=== PATIENT | male | born 1980 | race Caucasian/White ===

== ENCOUNTER 2016-12-13 02:02 | Emergency (ER) | payer OTHER ==
[2016-12-13] MEDS ORDERED: ONDANSETRON 4 MG/2 ML VIAL IVP STA (02:21)
[2016-12-13] MEDS ORDERED: SODIUM CHLORIDE 0.9% 2,000 ML IV STA (02:21)
[2016-12-13 02:57] LABS: Basophils % (A) 1 %; CH 34.5; CHCM 35.1; Eosinophils # (A) 0.1 k/uL (0-0.7); Eosinophils % (A) 1 %; HCT 49.2 % (39.0-53.0); HDW 2.39; HGB 16.7 gm/dL (13.0-17.5); Luc # (Auto) 0.13; Luc % (Auto) 2; Lymphocytes # (A) 1.4 k/uL (1.0-4.8); Lymphocytes % (A) 22 %; MCH 33.5 pg (25.0-35.0); MCHC 33.9 g/dL (31.0-37.0); MCV 98.8 fL (80.0-100.0); Monocytes # (A) 0.3 k/uL (0-1.0); Monocytes % (A) 5 %; Neutrophils # (A) 4.3 k/uL (1.3-7.7); Neutrophils % (A) 69 %; RBC 4.98 m/uL (4.30-5.90); RDW 12.2 % (11.5-15.5); WBC 6.3 k/uL (3.8-10.6); WBC (Perox) 6.24
[2016-12-13 03:08] LABS: ALT 75 U/L (21-72); AST 80 U/L (17-59); Alkaline Phosphatase 88 U/L (38-126); Amylase 110 U/L (30-110); Anion Gap 19 mmol/L; Blood Urea Nitrogen 5 mg/dL (9-20); Calcium 9.5 mg/dL (8.4-10.2); Carbon Dioxide 22 mmol/L (22-30); Chloride 104 mmol/L (98-107); Glucose 107 mg/dL (74-99); Non-African American GFR(MDRD) >60 (>60 ml/min/1.73 sqM); Potassium 4.3 mmol/L (3.5-5.1); Sodium 145 mmol/L (137-145); Total Bilirubin 1.6 mg/dL (0.2-1.3); Total Protein 7.6 g/dL (6.3-8.2)
--- NOTE | 2016-12-13 03:12 | ED ---
General Adult HPI - General Chief complaint: Nausea/Vomiting/Diarrhea Stated complaint: Abdominal Pain Time Seen by Provider: 12/13/16 02:04 Source: patient, RN notes reviewed, old records reviewed Mode of arrival: EMS Limitations: no limitations - History of Present Illness Initial comments: 36-year-old male presents the ED chief complaint of possible food poisoning. Patient reports that he ate BBQ chicken grilled out with friends. Patient reports shortly afterwards he became extremely nauseated. He denies any abdominal pain. Patient reports that he feels like he does have to have diarrhea. Patient states he was feeling fine after 2 hours later. Patient denies any other history of sick contacts with other people having the meal. Patient reports he did drink approximately 4 beers earlier today. Patient denies any chest pain, shortness of breath, abdominal pain. - Related Data Previous Rx's Medication Instructions Recorded Ondansetron Odt [Zofran Odt] 4 mg PO Q8HR PRN #12 tab 12/13/16 Allergies Allergy/AdvReac Type Severity Reaction Status Date / Time No Known Allergies Allergy Verified 12/13/16 02:14 Review of Systems ROS Statement: Those systems with pertinent positive or pertinent negative responses have been documented in the HPI. ROS Other: All systems not noted in ROS Statement are negative. Past Medical History Past Medical History: No Reported History History of Any Multi-Drug Resistant Organisms: MRSA Date of last positivie culture/infection: 2004 MDRO Source:: mrsa left wrist Additional Past Surgical History / Comment(s): ruptured spleen, several yrs ago , tubes in ears as a child Past Psychological History: No Psychological Hx Reported Smoking Status: Current every day smoker Past Alcohol Use History: Occasional Past Drug Use History: Marijuana General Exam - General Exam Comments Initial Comments: Well-appearing 36-year-old male. No acute distress. Limitations: no limitations General appearance: alert, in no apparent distress Head exam: Present: atraumatic Eye exam: Present: normal appearance, PERRL, EOMI. Absent: scleral icterus, conjunctival injection, periorbital swelling ENT exam: Present: normal exam, mucous membranes moist Neck exam: Present: normal inspection. Absent: tenderness, meningismus, lymphadenopathy Respiratory exam: Present: normal lung sounds bilaterally. Absent: respiratory distress, wheezes, rales, rhonchi, stridor Cardiovascular Exam: Present: regular rate, normal rhythm, normal heart sounds. Absent: systolic murmur, diastolic murmur, rubs, gallop, clicks GI/Abdominal exam: Present: soft, normal bowel sounds. Absent: distended, tenderness, guarding, rebound, rigid Extremities exam: Present: normal inspection, full ROM, normal capillary refill. Absent: tenderness, pedal edema, joint swelling, calf tenderness Back exam: Present: normal inspection Neurological exam: Present: alert, oriented X3, CN II-XII intact Psychiatric exam: Present: normal affect, normal mood Skin exam: Present: warm, dry, intact, normal color. Absent: rash Course Vital Signs 12/13/16 02:05 Temperature 98.6 F Pulse Rate 105 H Respiratory 16 Rate Blood Pressure 147/96 O2 Sat by Pulse 97 Oximetry - Reevaluation(s) Reevaluation #1: 12/13/16 03:40 Patient is reevaluated. Patient reports that he is feeling much better after fluids and nausea medication. Medical Decision Making - Medical Decision Making 36-year-old male presents the ED chief complaint of possible food poisoning. Patient reports that he ate BBQ fish grilled out with friends. Patient reports shortly afterwards he became extremely nauseated. He denies any abdominal pain. Patient reports that he feels like he does have to have diarrhea. Patient is given IV fluids. Patient's lab work was reviewed and negative for any acute process. Patient given a second liter of fluids. Discussed that we can discharge patient with nausea medication. He has no abdominal tenderness or any other complaints or complications. Patient agrees to treatment plan will comply. Return parameters were discussed. - Lab Data Result diagrams: 12/13/16 02:37 12/13/16 02:37 Lab Results 12/13/16 12/13/16 Range/Units 02:37 02:37 WBC 6.3 (3.8-10.6) k/uL RBC 4.98 (4.30-5.90) m/uL Hgb 16.7 (13.0-17.5) gm/dL Hct 49.2 (39.0-53.0) % MCV 98.8 (80.0-100.0) fL MCH 33.5 (25.0-35.0) pg MCHC 33.9 (31.0-37.0) g/dL RDW 12.2 (11.5-15.5) % Plt Count 220 (150-450) k/uL Neutrophils % 69 % Lymphocytes % 22 % Monocytes % 5 % Eosinophils % 1 % Basophils % 1 % Neutrophils # 4.3 (1.3-7.7) k/uL Lymphocytes # 1.4 (1.0-4.8) k/uL Monocytes # 0.3 (0-1.0) k/uL Eosinophils # 0.1 (0-0.7) k/uL Basophils # 0.0 (0-0.2) k/uL Sodium 145 (137-145) mmol/L Potassium 4.3 (3.5-5.1) mmol/L Chloride 104 (98-107) mmol/L Carbon Dioxide 22 (22-30) mmol/L Anion Gap 19 mmol/L BUN 5 L (9-20) mg/dL Creatinine 0.90 (0.66-1.25) mg/dL Est GFR (MDRD) Af Amer >60 (>60 ml/min/1.73 sqM) Est GFR (MDRD) Non-Af >60 (>60 ml/min/1.73 sqM) Glucose 107 H (74-99) mg/dL Calcium 9.5 (8.4-10.2) mg/dL Total Bilirubin 1.6 H (0.2-1.3) mg/dL AST 80 H (17-59) U/L ALT 75 H (21-72) U/L Alkaline Phosphatase 88 (38-126) U/L Total Protein 7.6 (6.3-8.2) g/dL Albumin 5.1 H (3.5-5.0) g/dL Amylase 110 (30-110) U/L Lipase 281 (23-300) U/L Disposition Clinical Impression: Gastroenteritis Disposition: HOME SELF-CARE Condition: Good Instructions: Acute Nausea and Vomiting (ED) Additional Instructions: Patient is to rest, increase fluids. Clear liquid diet for the next 24-48 hours. Take nausea medication as prescribed. Return to the emergency department if any alarming signs occur. Prescriptions: Ondansetron Odt [Zofran Odt] 4 mg PO Q8HR PRN #12 tab PRN Reason: Nausea Referrals: None,Stated [Primary Care Provider] - 1-2 days Aye Brunson MD [STAFF PHYSICIAN] - 1-2 days Time of Disposition: 03:39
[2016-12-13] MEDS ORDERED: ONDANSETRON 4 MG ODT STARTER PACK 2 TAB BTL PO STA (03:39)
[2016-12-13 04:00] VITALS: RESP 14
[2016-12-13 04:32] VITALS: BP 105/70; PULSE 84; TEMP 97
== END 2016-12-13 04:41 | disposition home or self-care (01) ==
LOC: EC 02:02
DX: K52.9 Noninfective gastroenteritis and colitis, unspecified (principal); R11.2 Nausea with vomiting, unspecified; F17.200 Nicotine dependence, unspecified, uncomplicated
CPT/HCPCS: 36415; 80053; 82150; 83690; 85025; 99284; 96374; 96361 ×2; J2405; S0119

== ENCOUNTER 2016-12-15 23:05 | Emergency (ER) | payer OTHER ==
[2016-12-15] MEDS ORDERED: SODIUM CHLORIDE 0.9% 1,000 ML IV STA (23:18)
[2016-12-15] MEDS ORDERED: LORazepam 2 MG/ML SYRINGE IV STA (23:35)
[2016-12-15] MEDS ORDERED: ONDANSETRON 4 MG/2 ML VIAL IVP STA (23:35)
[2016-12-15] MEDS ORDERED: HYDROmorphone 1 MG/ML 1 ML SYRINGE IVP STA (23:35)
--- NOTE | 2016-12-15 23:35 | ED ---
General Adult HPI - General Chief complaint: Nausea/Vomiting/Diarrhea Stated complaint: vomiting/diarrhea/chest pain Time Seen by Provider: 12/15/16 23:16 Source: patient, RN notes reviewed Mode of arrival: ambulatory Limitations: no limitations - History of Present Illness Initial comments: 36-year-old male presents to the emergency department with a chief complaint of abdominal pain that radiates to the back. Patient states she's had it for the past few days. Patient states he had an extended up into his chest associated with nausea vomiting. Patient states that he does drink alcohol on a regular basis. Patient states he's been trying stop the alcohol and he is having withdrawal like symptoms when he stops area patient states that he did have a beer today. Patient's seizures no fever or chills. Patient states his mother has a history of pancreatitis and has had something like that. He should be seen. Patient denies any significant health history or any other complaints. Patient denies any recent fever, chills, shortness of breath, back pain, numbness or tingling, dysuria or hematuria, constipation or diarrhea, headaches or visual changes, or any other current symptoms. - Related Data Previous Rx's Medication Instructions Recorded Ondansetron Odt [Zofran Odt] 4 mg PO Q8HR PRN #12 tab 12/13/16 chlordiazePOXIDE HCl [Librium] 25 mg PO DIRECTED 6 Days 12/16/16 Allergies Allergy/AdvReac Type Severity Reaction Status Date / Time Sulfa (Sulfonamide Allergy Unknown Verified 12/15/16 23:14 Antibiotics) Childhood Review of Systems ROS Statement: Those systems with pertinent positive or pertinent negative responses have been documented in the HPI. ROS Other: All systems not noted in ROS Statement are negative. Past Medical History Past Medical History: No Reported History History of Any Multi-Drug Resistant Organisms: MRSA Date of last positivie culture/infection: 2004 MDRO Source:: mrsa left wrist Additional Past Surgical History / Comment(s): ruptured spleen, several yrs ago , tubes in ears as a child Past Psychological History: No Psychological Hx Reported Smoking Status: Current every day smoker Past Alcohol Use History: Occasional Past Drug Use History: Marijuana General Exam - General Exam Comments Initial Comments: General: The patient is awake and alert, in no distress, and does not appear acutely ill. Eye: Pupils are equal, round and reactive to light, extra-ocular movements are intact; there is normal conjunctiva bilaterally. No signs of icterus. Ears, nose, mouth and throat: There are moist mucous membranes. Neck: The neck is supple, there is no tenderness. Cardiovascular: There is a regular rate and rhythm. No murmur, rub or gallop is appreciated. Respiratory: Lungs are clear to auscultation, respirations are non-labored, breath sounds are equal. No wheezes, stridor, rales, or rhonchi. Gastrointestinal: Soft, non-distended, non-tender abdomen without masses or organomegaly noted. There is no rebound or guarding present. No CVA tenderness. Bowel sounds are unremarkable. Back: There is no tenderness to palpation in the midline. There is no obvious deformity. No rashes noted. Musculoskeletal: Normal ROM, no tenderness, There is no pedal edema. There is no calf tenderness or swelling. Sensation intact. Pulses equal bilaterally 2+. Neurological: CN II-XII intact, There are no obvious motor or sensory deficits. Coordination appears grossly intact. Speech is normal. Skin: Skin is warm and dry and no rashes or lesions are noted. Psychiatric: Cooperative, appropriate mood & affect, normal judgment. Limitations: no limitations Course Vital Signs 12/15/16 12/15/16 12/16/16 23:10 23:37 01:14 Temperature 99.4 F Pulse Rate 139 H 104 H Pulse Rate [ 109 H Apical] Respiratory 24 18 Rate Blood Pressure 158/109 130/81 O2 Sat by Pulse 99 98 Oximetry EKG Findings - EKG Comments: EKG Findings:: normal sinus rhythm 97 bpm, normal axis, no atopy, no S-T depressions or elevations, Medical Decision Making - Medical Decision Making 36-year-old male presents with abdominal pain that radiates to the back associated with nausea vomiting. This time patient is sleeping in the room and states that he is feeling better. At this time patient is noticed to have elevated bilirubin. At this time I did discuss needs to follow-up with GI he is given . she was at risk. We did discuss return parameters. We discussed all patient's questions. He stated the Mitul and given the plan. He will be discharged. - Lab Data Result diagrams: 12/15/16 23:33 12/15/16 23:33 Lab Results 12/15/16 12/15/16 12/15/16 Range/Units 23:33 23:33 23:33 WBC 5.8 (3.8-10.6) k/uL RBC 4.52 (4.30-5.90) m/uL Hgb 15.3 (13.0-17.5) gm/dL Hct 44.4 (39.0-53.0) % MCV 98.2 (80.0-100.0) fL MCH 33.8 (25.0-35.0) pg MCHC 34.4 (31.0-37.0) g/dL RDW 12.3 (11.5-15.5) % Plt Count 170 (150-450) k/uL Neutrophils % 70 % Lymphocytes % 17 % Monocytes % 10 % Eosinophils % 0 % Basophils % 0 % Neutrophils # 4.0 (1.3-7.7) k/uL Lymphocytes # 1.0 (1.0-4.8) k/uL Monocytes # 0.6 (0-1.0) k/uL Eosinophils # 0.0 (0-0.7) k/uL Basophils # 0.0 (0-0.2) k/uL PT (9.0-12.0) sec INR (<1.1) APTT (22.0-30.0) sec Sodium 137 (137-145) mmol/L Potassium 3.4 L (3.5-5.1) mmol/L Chloride 97 L (98-107) mmol/L Carbon Dioxide 23 (22-30) mmol/L Anion Gap 17 mmol/L BUN 3 L (9-20) mg/dL Creatinine 0.80 (0.66-1.25) mg/dL Est GFR (MDRD) Af Amer >60 (>60 ml/min/1.73 sqM) Est GFR (MDRD) Non-Af >60 (>60 ml/min/1.73 sqM) Glucose 96 (74-99) mg/dL Calcium 10.0 (8.4-10.2) mg/dL Magnesium 2.1 (1.6-2.3) mg/dL Total Bilirubin 3.3 H (0.2-1.3) mg/dL Conjugated Bilirubin 0.0 (0.0-0.3) mg/dL Unconjugated Bilirubin 2.5 H (0.0-1.1) mg/dL Delta Bilirubin 0.8 H (0.0-0.2) mg/dL AST 120 H (17-59) U/L ALT 90 H (21-72) U/L Alkaline Phosphatase 89 (38-126) U/L Total Creatine Kinase 268 H (55-170) U/L CK-MB (CK-2) 1.0 (0.0-2.4) ng/mL CK-MB (CK-2) Rel Index 0.4 Troponin I <0.012 (0.000-0.034) ng/mL Total Protein 7.2 (6.3-8.2) g/dL Albumin 4.9 (3.5-5.0) g/dL Amylase 84 (30-110) U/L Lipase 239 (23-300) U/L 12/15/16 Range/Units 23:33 WBC (3.8-10.6) k/uL RBC (4.30-5.90) m/uL Hgb (13.0-17.5) gm/dL Hct (39.0-53.0) % MCV (80.0-100.0) fL MCH (25.0-35.0) pg MCHC (31.0-37.0) g/dL RDW (11.5-15.5) % Plt Count (150-450) k/uL Neutrophils % % Lymphocytes % % Monocytes % % Eosinophils % % Basophils % % Neutrophils # (1.3-7.7) k/uL Lymphocytes # (1.0-4.8) k/uL Monocytes # (0-1.0) k/uL Eosinophils # (0-0.7) k/uL Basophils # (0-0.2) k/uL PT 10.4 (9.0-12.0) sec INR 1.0 (<1.1) APTT 24.2 (22.0-30.0) sec Sodium (137-145) mmol/L Potassium (3.5-5.1) mmol/L Chloride (98-107) mmol/L Carbon Dioxide (22-30) mmol/L Anion Gap mmol/L BUN (9-20) mg/dL Creatinine (0.66-1.25) mg/dL Est GFR (MDRD) Af Amer (>60 ml/min/1.73 sqM) Est GFR (MDRD) Non-Af (>60 ml/min/1.73 sqM) Glucose (74-99) mg/dL Calcium (8.4-10.2) mg/dL Magnesium (1.6-2.3) mg/dL Total Bilirubin (0.2-1.3) mg/dL Conjugated Bilirubin (0.0-0.3) mg/dL Unconjugated Bilirubin (0.0-1.1) mg/dL Delta Bilirubin (0.0-0.2) mg/dL AST (17-59) U/L ALT (21-72) U/L Alkaline Phosphatase (38-126) U/L Total Creatine Kinase (55-170) U/L CK-MB (CK-2) (0.0-2.4) ng/mL CK-MB (CK-2) Rel Index Troponin I (0.000-0.034) ng/mL Total Protein (6.3-8.2) g/dL Albumin (3.5-5.0) g/dL Amylase (30-110) U/L Lipase (23-300) U/L - Radiology Data Radiology results: report reviewed, image reviewed Disposition Clinical Impression: Abdominal pain, Elevated bilirubin, Alcoholism Disposition: HOME SELF-CARE Condition: Stable Instructions: Abdominal Pain (ED), Alcohol Withdrawal (ED) Additional Instructions: Please use medication as discussed. Please follow up with family doctor if symptoms have not improved over the next two days. Please return to the emergency room if your symptoms increase or worsen or for any other concerns. Prescriptions: chlordiazePOXIDE HCl [Librium] 25 mg PO DIRECTED 6 Days Referrals: Christy Jaquez MD [STAFF PHYSICIAN] - 1-2 days Time of Disposition: 02:42
[2016-12-15 23:50] LABS: Basophils % (A) 0 %; CHCM 35.8; Eosinophils % (A) 0 %; HCT 44.4 % (39.0-53.0); HDW 2.36; HGB 15.3 gm/dL (13.0-17.5); Luc # (Auto) 0.14; Luc % (Auto) 2; Lymphocytes % (A) 17 %; MCH 33.8 pg (25.0-35.0); MCHC 34.4 g/dL (31.0-37.0); MCV 98.2 fL (80.0-100.0); Mean Platelet Volume 7.4; Monocytes # (A) 0.6 k/uL (0-1.0); Monocytes % (A) 10 %; Neutrophils % (A) 70 %; RBC 4.52 m/uL (4.30-5.90); RDW 12.3 % (11.5-15.5); WBC 5.8 k/uL (3.8-10.6)
[2016-12-15 23:58] LABS: ALT 90 U/L (21-72); AST 120 U/L (17-59); Alkaline Phosphatase 89 U/L (38-126); Amylase 84 U/L (30-110); Anion Gap 17 mmol/L; Blood Urea Nitrogen 3 mg/dL (9-20); Carbon Dioxide 23 mmol/L (22-30); Chloride 97 mmol/L (98-107); Glucose 96 mg/dL (74-99); Magnesium 2.1 mg/dL (1.6-2.3); Non-African American GFR(MDRD) >60 (>60 ml/min/1.73 sqM); Potassium 3.4 mmol/L (3.5-5.1); Sodium 137 mmol/L (137-145); Total Bilirubin 3.3 mg/dL (0.2-1.3); Total Protein 7.2 g/dL (6.3-8.2)
[2016-12-16 00:02] LABS: Partial Thromboplastin Time 24.2 sec (22.0-30.0); Prothrombin Time 10.4 sec (9.0-12.0)
[2016-12-16 00:14] LABS: Creatine Kinase 268 U/L (55-170)
[2016-12-16 00:27] LABS: Troponin I <0.012 ng/mL (0.000-0.034)
--- NOTE | 2016-12-16 01:29 | US ---
EXAM: US Abdomen Limited, Right Upper Quadrant CLINICAL HISTORY: Reason: Pain TECHNIQUE: Real-time ultrasound of the right upper quadrant with image documentation. COMPARISON: No relevant prior studies available. FINDINGS: Liver: Echogenic liver parenchyma most likely reflects steatosis. No mass. No intrahepatic bile duct dilation. Gallbladder: No gallstones. No wall thickening or pericholecystic fluid. Order Administrator reports a Roman sign, but this is of doubtful significance without other findings. Common bile duct: Unremarkable as visualized. No stones. No dilation. Pancreas: Unremarkable as visualized. Right kidney: Unremarkable. No stones. No solid mass. No hydronephrosis. IMPRESSION: Sonographic Roman sign is of uncertain clinical relevance given lack of cholelithiasis or other objective findings of gallbladder inflammation. Echogenic liver parenchyma most likely reflects steatosis.
--- NOTE | 2016-12-16 01:41 | XR ---
EXAM: XR Chest, 2 Views CLINICAL HISTORY: Reason: Chest Pain TECHNIQUE: Frontal and lateral views of the chest. COMPARISON: No relevant prior studies available. FINDINGS: Lungs: Unremarkable. No consolidation. Pleural space: Unremarkable. No pneumothorax. Heart: Unremarkable. No cardiomegaly. Mediastinum: Unremarkable. Bones/joints: Unremarkable. Upper abdomen: Endovascular coils in the left upper quadrant IMPRESSION: No evidence of acute pulmonary disease
[2016-12-16 02:07] LABS: Bilirubin, Delta 0.8 mg/dL (0.0-0.2)
[2016-12-16] MEDS ORDERED: LORazepam 2 MG/ML SYRINGE IV STA (02:42)
[2016-12-16 03:03] VITALS: TEMP 98.4
[2016-12-16] MEDS ORDERED: methylPREDNISolone SOD SUCCI 125 MG/2 ML VIAL IV STA (03:15)
[2016-12-16] MEDS ORDERED: diphenhydrAMINE 50 MG/ML 1 ML VIAL IVP STA (03:15)
[2016-12-16 03:50] VITALS: BP 123/81; PULSE 99; RESP 18
== END 2016-12-16 04:10 | disposition home or self-care (01) ==
LOC: EC 23:05
DX: R10.9 Unspecified abdominal pain (principal); R74.8 Abnormal levels of other serum enzymes; F10.20 Alcohol dependence, uncomplicated; F17.200 Nicotine dependence, unspecified, uncomplicated; Z88.2 Allergy status to sulfonamides
CPT/HCPCS: 99285; 96374; 96375 ×4; 96376; 82075; 36415; 93005; 80053; 82150; 82248; 82550; 82553; 83690; 83735; 84484; 85025; 85610; 85730; 71020; 76705; J2060; J1200; J2930; J2405; J1170

== ENCOUNTER 2016-12-16 21:58 | Observation (INO) | payer OTHER ==
[2016-12-16 22:43] LABS: Basophils % (A) 0 %; CH 34.6; CHCM 35.1; Eosinophils % (A) 0 %; HCT 45.5 % (39.0-53.0); HDW 2.29; HGB 15.2 gm/dL (13.0-17.5); Luc # (Auto) 0.13; Luc % (Auto) 3; Lymphocytes # (A) 0.6 k/uL (1.0-4.8); Lymphocytes % (A) 15 %; MCHC 33.3 g/dL (31.0-37.0); MCV 99.2 fL (80.0-100.0); Mean Platelet Volume 7.6; Monocytes # (A) 0.5 k/uL (0-1.0); Monocytes % (A) 11 %; Neutrophils % (A) 70 %; RBC 4.59 m/uL (4.30-5.90); RDW 12.2 % (11.5-15.5); WBC 4.3 k/uL (3.8-10.6); WBC (Perox) 4.21
[2016-12-16 23:05] LABS: Acetaminophen <10.0 ug/mL; Anion Gap 15 mmol/L; Blood Urea Nitrogen 4 mg/dL (9-20); Calcium 10.1 mg/dL (8.4-10.2); Carbon Dioxide 24 mmol/L (22-30); Chloride 101 mmol/L (98-107); Glucose 119 mg/dL (74-99); Non-African American GFR(MDRD) >60 (>60 ml/min/1.73 sqM); Potassium 3.8 mmol/L (3.5-5.1); Salicylate <1.0 mg/dL; Sodium 140 mmol/L (137-145)
[2016-12-17] MEDS ORDERED: NALOXONE 0.4 MG/ML 1 ML VIAL IV PRN (00:55)
[2016-12-17] MEDS ORDERED: ONDANSETRON 4 MG/2 ML VIAL IVP PRN (00:55)
--- NOTE | 2016-12-17 00:55 | ED ---
General Adult HPI - General Chief complaint: Psychiatric Symptoms Stated complaint: mental health-revisit Source: patient Mode of arrival: ambulatory Limitations: no limitations - History of Present Illness Initial comments: 36-year-old homeless male presented for evaluation of all with Lalo as well as suicidal ideations. The patient states that he moved to [place] recently from [place] for a job opportunity. He was living with some friends and states that his living situation became volatile and unhealthy forcing him to leave. He has since been moving from situation to situation and states that recently he has been living on the streets. He works at [employer] and states that recently his job has also been suffering. Abdomen is girlfriend of 6 years also broke up and he says between all these stresses in his life he has been contemplating suicidal ideations. He doesn't believe that he would go through with them but the fact that he has been considering it has been his care to him. He states that he went through delirium tremens some years ago when he was in [facility] and he feels this coming on again at this time. His last drink was earlier today. He states that his level of drinking fluctuates depending on how much marijuana he smoked. He denies any intention of hurting other people and states no history of psychiatric illness. - Related Data Previous Rx's Medication Instructions Recorded Ondansetron Odt [Zofran Odt] 4 mg PO Q8HR PRN #12 tab 12/13/16 chlordiazePOXIDE HCl [Librium] 25 mg PO DIRECTED 6 Days 12/16/16 Allergies Allergy/AdvReac Type Severity Reaction Status Date / Time Sulfa (Sulfonamide Allergy Unknown Verified 12/16/16 22:09 Antibiotics) Childhood Review of Systems ROS Statement: Those systems with pertinent positive or pertinent negative responses have been documented in the HPI. ROS Other: All systems not noted in ROS Statement are negative. Constitutional: Denies: fever, chills Eyes: Denies: eye pain, eye discharge, vision change ENT: Denies: ear pain, throat pain Respiratory: Denies: cough, dyspnea Cardiovascular: Denies: chest pain, palpitations Endocrine: Denies: fatigue, polydipsia, polyuria Gastrointestinal: Denies: abdominal pain, nausea, vomiting Genitourinary: Denies: urgency, dysuria Musculoskeletal: Denies: back pain, arthralgia, myalgia Skin: Denies: rash, lesions Neurological: Denies: headache, weakness Psychiatric: Reports: anxiety, depression, visual hallucinations Hematological/Lymphatic: Denies: easy bleeding, easy bruising Past Medical History Past Medical History: No Reported History History of Any Multi-Drug Resistant Organisms: MRSA Date of last positivie culture/infection: 2004 MDRO Source:: mrsa left wrist Additional Past Surgical History / Comment(s): ruptured spleen, several yrs ago , tubes in ears as a child Past Psychological History: No Psychological Hx Reported Smoking Status: Current every day smoker Past Alcohol Use History: Occasional Past Drug Use History: Marijuana General Exam Limitations: no limitations General appearance: alert, in no apparent distress Head exam: Present: atraumatic, normocephalic, normal inspection Eye exam: Present: normal appearance, PERRL, EOMI. Absent: scleral icterus, conjunctival injection, periorbital swelling ENT exam: Present: normal exam, mucous membranes moist Neck exam: Present: normal inspection. Absent: tenderness, meningismus, lymphadenopathy Respiratory exam: Present: normal lung sounds bilaterally. Absent: respiratory distress, wheezes, rales, rhonchi, stridor Cardiovascular Exam: Present: regular rate, normal rhythm, normal heart sounds. Absent: systolic murmur, diastolic murmur, rubs, gallop, clicks GI/Abdominal exam: Present: soft, normal bowel sounds. Absent: distended, tenderness, guarding, rebound, rigid Rectal exam: Present: deferred Extremities exam: Present: normal inspection, full ROM, normal capillary refill. Absent: tenderness, pedal edema, joint swelling, calf tenderness Back exam: Present: normal inspection Neurological exam: Present: alert, oriented X3, CN II-XII intact Psychiatric exam: Present: normal affect, normal mood, depressed, anxious, suicidal ideation Skin exam: Present: warm, dry, intact, normal color. Absent: rash Course Vital Signs 12/16/16 12/17/16 22:04 00:35 Temperature 99.1 F 98.8 F Pulse Rate 113 H 78 Respiratory 20 18 Rate Blood Pressure 132/85 127/78 O2 Sat by Pulse 99 96 Oximetry Medical Decision Making - Medical Decision Making 36-year-old male with past medical history of alcoholism and multidrug abuse presented for evaluation of alcohol withdrawals and suicidal ideations. He states that although the symptoms have been resulting from life stressors that is been on his control. He is been drinking more and drinking his leg to further bad decisions which is then led to his suicidal ideations. He states he's never felt this way before and he doesn't want her himself thoughts keep hopping into his head. He has previously gone through delirium tremens and states that he feels it coming on at this point as well. Labs revealed no significant abnormalities although we will continue to wait on the urinalysis and urine drug screen. The patient was discussed with Dr. Singh who accepted the admission and requested consults with psych. Admission order placed and bed request submitted. - Lab Data Result diagrams: 12/16/16 22:22 12/16/16 22:22 Lab Results 12/16/16 12/16/16 Range/Units 22:22 22:22 WBC 4.3 (3.8-10.6) k/uL RBC 4.59 (4.30-5.90) m/uL Hgb 15.2 (13.0-17.5) gm/dL Hct 45.5 (39.0-53.0) % MCV 99.2 (80.0-100.0) fL MCH 33.0 (25.0-35.0) pg MCHC 33.3 (31.0-37.0) g/dL RDW 12.2 (11.5-15.5) % Plt Count 184 (150-450) k/uL Neutrophils % 70 % Lymphocytes % 15 % Monocytes % 11 % Eosinophils % 0 % Basophils % 0 % Neutrophils # 3.0 (1.3-7.7) k/uL Lymphocytes # 0.6 L (1.0-4.8) k/uL Monocytes # 0.5 (0-1.0) k/uL Eosinophils # 0.0 (0-0.7) k/uL Basophils # 0.0 (0-0.2) k/uL Sodium 140 (137-145) mmol/L Potassium 3.8 (3.5-5.1) mmol/L Chloride 101 (98-107) mmol/L Carbon Dioxide 24 (22-30) mmol/L Anion Gap 15 mmol/L BUN 4 L (9-20) mg/dL Creatinine 0.90 (0.66-1.25) mg/dL Est GFR (MDRD) Af Amer >60 (>60 ml/min/1.73 sqM) Est GFR (MDRD) Non-Af >60 (>60 ml/min/1.73 sqM) Glucose 119 H (74-99) mg/dL Calcium 10.1 (8.4-10.2) mg/dL Salicylates <1.0 mg/dL Acetaminophen <10.0 ug/mL Disposition Clinical Impression: Alcohol withdrawal, Depression, Suicidal ideation Disposition: ADMITTED IP TO THIS HOSP Referrals: None,Stated [Primary Care Provider] - 1-2 days Decision to Admit Reason: Admit from EC Decision Date: 12/17/16 Decision Time: 00:55
[2016-12-17] MEDS ORDERED: LORazepam 2 MG/ML SYRINGE IV PRN (00:58)
[2016-12-17] MEDS ORDERED: THIAMINE 100 MG/ML 2 ML VIAL IM STA (00:58)
[2016-12-17 02:16] VITALS: BMI 18.3
[2016-12-17] MEDS ORDERED: LORazepam 2 MG/ML SYRINGE ONE (07:00)
[2016-12-17] MEDS: LORazepam 2 MG/ML SYRINGE IV PRN ×2 (11:04→21:24)
[2016-12-17] MEDS: MULTIVITAMINS, THERA 1 EACH TAB PO SCH (11:06)
[2016-12-17] MEDS: THIAMINE 100 MG TAB PO SCH (17:45)
[2016-12-18] MEDS: LORazepam 2 MG/ML SYRINGE IV PRN ×7 (00:28→22:48)
--- NOTE | 2016-12-18 06:49 | CONS ---
DATE OF CONSULTATION: 12/17/2016 IDENTIFYING DATA: This patient is a 36-year-old single male who is currently admitted to the fourth floor of the hospital with alcohol withdrawal symptoms. I am asked to consult regarding suicidal thoughts. HISTORY OF PRESENT ILLNESS: The patient states that he has been drinking alcohol on a daily basis and this will range from 4 to 24 drinks per day. He contracted a gastrointestinal illness and did not eat for 3 days or consume alcohol and he began going through alcohol withdrawal symptoms. Included in this syndrome he experienced visual hallucinations of seeing animals and distorted images and was having "dark thoughts and delusions." He has been admitted to the medical floor. He has been given Ativan according to [facility] protocol. He reports she still has some hallucinations, but is starting to feel better. He states he was having some suicidal thoughts, but states today he has no intent or plan of harming himself and just wants to feel better. He states he is ordinarily a "happy person". He is hoping to get into [facility] for inpatient chemical dependency treatment, but there is some delay in getting accepted. He has not yet reached somebody with intake to provide information. He is homeless and this also impacts his mood. He is reporting no homicidal ideation. He is reporting no history of hypomanic or manic symptoms. He has limited support in this area as he has just moved here from [place]. PAST PSYCHIATRIC HISTORY: No prior inpatient psychiatric care. No history of suicide attempts. He states he has not been prescribed any antidepressants in the past. He has been on other benzodiazepines in the past. PAST MEDICAL HISTORY: He reports a splenic rupture 2008 due to a snowboarding accident. ALLERGIES: SULFA. CHEMICAL DEPENDENCY HISTORY: Daily alcohol use 4 to 24 drinks for an extended period of time. He reports using marijuana frequently. He denies any use of any other illicit drugs. He has never been placed in residential treatment for chemical dependency reasons. He reports that he did attend yesterday. FAMILY PSYCHIATRIC HISTORY: A grandfather is known to have dementia. There are no reports of suicides in the family. FAMILY CHEMICAL DEPENDENCY HISTORY: His father is alcohol dependent. SOCIAL HISTORY: The patient is 36 years old. He is single. He has a 12-year-old son who resides in [place]. The patient has been recently employed at [employer], has been there for 3 to 4 weeks. 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 The patient graduated high school and earned associates in [employer]. He has been in [place] for approximately 2 months again with limited support. MENTAL STATUS EXAM: The patient is a thin male appearing his stated age. He is dressed in hospital attire. Eye contact is appropriate. He is alert. He reports that his mood is better, but he is still troubled by experiencing hallucinations related to his alcohol withdrawal. He is physically tremulous when he tries to use his upper extremities. Hygiene and grooming are impaired. He reports his mood ( ), intent or plan. He endorses no auditory hallucinations. He is endorsing no specific delusions. He reports he feels safe here in the hospital. He demonstrates no verbal or physical aggressiveness. He demonstrates no tangential thinking, flight of ideas or loose associations. Insight and judgment are improving. IMPRESSIONS: 1. Alcohol use disorder, adjustment disorder with depressed mood. 2. Homelessness, recent employment, no insurance, limited support. PLAN: The patient will continue on the [facility] protocol to detox from alcohol. I agreed he should call and register for inpatient chemical dependency treatment at [facility] if possible. I will continue to follow the patient and reassess his psychiatric status in terms of risk for self-harm. No further psychotropic medication recommendations at this time. I expect his mood symptoms will improve as he progresses further through the detoxification process. I would recommend social work meet with the patient to discuss placement at [facility], and eligibility for a custodial placement given that he has no local ID.
[2016-12-18] MEDS: NICOTINE 21MG/24HR PATCH TRANSDERM SCH (09:15)
[2016-12-18] MEDS: THIAMINE 100 MG TAB PO SCH ×2 (12:21→17:28)
[2016-12-18] MEDS: MULTIVITAMINS, THERA 1 EACH TAB PO SCH (12:21)
--- NOTE | 2016-12-18 13:35 | P.CN ---
Psychiatric Consult - . Consult date: 12/18/16 Consult:: 12/18/16 13:26 DATE OF SERVICE: 12/18/2016 IDENTIFYING DATA: This patient is a 36-year-old and go male admitted to the fourth floor for alcohol detox. . HISTORY OF PRESENT ILLNESS: The patient was assessed yesterday by Dr. Woodward, diagnosis of alcohol use, disorder severe. Appeared the patient was going through alcohol withdrawal. Today patient is found seated upright in his bed with a list of rehab in the local area. Patient states that he is doing better , states that this will be the last time that he goes through withdrawal that it 's the worst it's ever been. He notes that he thinks it was bad this time because he got some food poisoning and had been vomiting for 3 days and stopped alcohol cold turkey. He was given Librium when he visited the emergency room states that he still has some left. Patient is new to this area he came here to work, but the person who he thought he would stay with did not allow him to stay in his house. He then found another place on [facility] list gave them some money and the were fighting all the time so patient left. Patient asks if I would intercede for the [employer] to see if they would give him any findings. Explained to him that that is not something that I can do but that he should call and see if they do have anything for emergency social economic cases. Nursing staff also explained to me that he has been asking them if the hospital has any funds that he would be able to receive. When asked about hallucinations he said that he was having them however he explained that they occurred 2 days ago and may be yesterday, he then stated that when he looks out the window he sometimes sees the brick wall as if the bricks are waving or shimmering. No suicidal ideation.. LEGAL HISTORY: [ nursing staff reports that he has spent time in custodial in senior care and that may have been the only time that he was abstinent from alcohol and drugs. ]. ASSESSMENT: Patient with alcohol use disorder, severe, had a period of 3 days of gastrointestinal disease causing an abrupt cessation of alcohol. Unclear whether he then came to the hospital and got some Librium and try to do outpatient detox but he returned and was admitted to the fourth floor. Appears that he is looking for financial help, to address his homelessness. No evidence of psychosis, no evidence of an affective illness (depression/ anxiety). No suicidal ideation. No homicidal ideation. Patient is still receiving Ativan, and interesting his CIWA is higher than it was and when he was admitted. Not clear that he is actually now in withdrawal. Would recommend tapering off Ativan. No outpatient prescription for Ativan should be provided. SW to provide list of shelters, and/or rehabs that would be helpful No indciation for inpatient psychitric admission, no medications indicated, no outpatient follow indicated. Will follow with you until he is discharged.
[2016-12-19] MEDS: LORazepam 2 MG/ML SYRINGE IV PRN (08:42)
[2016-12-19] MEDS: NICOTINE 21MG/24HR PATCH TRANSDERM SCH (08:42)
--- NOTE | 2016-12-19 10:33 | P.PN ---
Progress Note - Text Nursing staff called and asked if I could come back to see the patient today. Patient was seated up in bed his IV had to be restarted, so I spoke with the nurse and asked her to delay placing a new IV line. Patient was less pleasant today than yesterday. He wanted to know what we expected him to do since it was 95% sure in his mind that he would drink if he was released. Patient had been able to contact [facility] yesterday and he has an admission date of January 02. He wants to remain in the hospital until then and expects that we would admitted to [facility] Explained to him that we do not hold people on the psych unit until they have an admission to the rehab. He then stated that he could not go to any care home, I reviewed with him that none of the social workers are aware that the shelters refuse non[place] residents to the care home. In addition of that Norma renal social worker of the fourth floor stated that because he has pay stubs that will be sufficient for him to go into the care home. He said that he called [facility] and they said no they would not allow him in because he is not a resident. At that point I I suggested that he ask his friend to brought him here if he could stay there until the admission, he said he would not. I suggested he call his parents to see if they could lend him some money, patient stated "do you want to see the text from my mother she says she is not helping me" asked him about his father who he stated is a doctor, and he also refuses to help the patient. I asked the patient why this was and he stated that they think he needs to address his problem on his own. At that point patient reported that he had been in halfway due to a DUI and has continued to drink. Family has cut him off of any help. Patient then stated "do I have to say that I'm suicidal in order to get into f... [facility]" as patient if he could repeat that and he said the same thing. Suggested to patient that he is trying to get into [facility] and will say anything that he thinks will get him in. Patient has denied depression and suicidal ideation since he's been here. Patient alert and oriented 3, good eye contact, fair groomed in hospital attire. Using profane language when not being given answers that he finds acceptable, rude at times Speech normal volume, rate and production. Coherent, logical and goal directed thought process. No ELENA, no FOI. No TB/TW/ TI Denied auditory and visual hallucinations. Denied paranoid ideation, delusions or IOR. Mood irritable, affect constricted, congruent with mood. Denies suicidal ideation, denies homicidal ideation. Insight none; Judgment intact A: Patient with a long history of alcohol use, severe to the point of being incarcerated due to a DUI. Patient is not suicidal but is manipulating to try to force the system to admit him to [facility], which he stated in his initial evaluation that a friend at where he worked told them that he would be housed at [facility]. Patient is probably correct that there is a good chance that he will go out and drink, but that that was not an indication for admission to [facility]. Patient has not been without a benzodiazepine long enough, spoke to Stephy who agreed that he could stay on the unit for observation of 24 hours without benzodiazepine. Ativan discontinued Patient has no past hx of psychiatric illness other than ETOH use. He is not suicidal. No clinical indication for admission to . Alcohol use, severe Alcohol intoxication, resolved R/O Antisocial traits P:D/C ativan, no IV or PO. Observe for 24 hours to be sure no DTs. SW will give resources for shelters. I will follow with you.
--- NOTE | 2016-12-19 12:34 | P.PN ---
Subjective 36-year-old being seen and evaluated. Did discuss the plan of care with the psychiatrist. Did agree that the patient benzodiazepine will be stopped. Patient's last dose of Ativan reportedly was at 8:00 the night before. The plan would be to keep him on the unit and observed for another 24 hours without benzodiazepine. Plan on discharging in the morning. The social service worker did give the patient resources for [facility] patient is aware of the plan of care Psychiatrist's eval reviewed noted and appreciated Objective - Vital Signs Vital signs: Vital Signs Temp 96.9 F L 12/19/16 07:00 Pulse 57 L 12/19/16 07:00 Resp 16 12/19/16 07:00 BP 82/56 12/19/16 07:00 Pulse Ox 99 12/19/16 07:00 Intake & Output 12/18/16 12/19/16 12/19/16 18:59 06:59 18:59 Intake Total 1200 Output Total 1000 Balance -1000 1200 Intake: Oral 1200 Output: Urine 1000 Other: Voiding Method Toilet Urinal # Voids 1 2 - Exam Physical exam 36-year-old sitting up in bed does not appear in acute distress Lungs essentially clear adequate air movement sats are 99% on room air Heart S1-S2 audible regular heart rate in the 80s Abdomen flat nontender reports no nausea vomiting Extremities no edema - Labs CBC & Chem 7: 12/16/16 22:22 12/16/16 22:22 Assessment and Plan Plan: Impression Present on admission acute alcohol intoxication Chronic alcohol abuse Rule out antisocial traits Current every day smoker Urine drug screen positive for marijuana and benzodiazepine Plan Stop CIWA protocol/Ativan and monitor another 23 hours with the plan the patient will be DC'd in the morning if medically stable drywall metal stud worker's recommendations reviewed did provide the patient with information about local [facility] Psychiatrist's recommendations reviewed and appreciated continue to monitor The above impression and plan of care have been discussed and directed by signing physician. Stephy Mojica nurse practitioner acting as scribe for signing physician.
[2016-12-19] MEDS: MULTIVITAMINS, THERA 1 EACH TAB PO SCH (13:01)
[2016-12-19] MEDS: THIAMINE 100 MG TAB PO SCH ×2 (13:01→16:57)
--- NOTE | 2016-12-19 15:00 | P.HPIM ---
History of Present Illness H&P Date: 12/17/16 36-year-old who presented on the day of admission to the emergency room to be evaluated alcoholism multidrug abuse presented for alcohol withdraw. Patient states he's been under a lot of life stressors. Patient states he's been drinking more than he usually drinks. Patient states he never felt this way before in the. Patient initially was admitted under Dr. Tena who initially except the admission and then requested since the patient was not established with Dr. Tena the admission to transferred to Dr. Barnes he was taking city call patient was admitted for alcohol detox. Psychiatrist did see the patient patient reportedly moved up here from another state he states he was looking for employment. He states he was living with some friends stated that the living situation became healthy forcing him to leave. He states he's been moving from situation to situation and now is [address] states he currently is working at the [employer]. Patient stated he was contemplating suicide ideation. But he doesn't believe that he would go through with it. Patient was not experiencing any delirium tremors. Patient stated he had no intentions of hurting other people. Patient has no prior psychiatric illness patient report Review of Systems Essentially unremarkable except as mentioned in the present illness Past Medical History Past Medical History: No Reported History History of Any Multi-Drug Resistant Organisms: MRSA Date of last positivie culture/infection: 2004 MDRO Source:: mrsa left wrist Additional Past Surgical History / Comment(s): ruptured spleen, several yrs ago , tubes in ears as a child Past Psychological History: No Psychological Hx Reported Smoking Status: Current every day smoker Past Alcohol Use History: Daily Past Drug Use History: Marijuana - Past Family History Father Additional Family Medical History / Comment(s): ETOH Mother Additional Family Medical History / Comment(s): moderate drinker, pancretitis Medications and Allergies Home Medications Medication Instructions Recorded Confirmed Type chlordiazePOXIDE HCl [Librium] 25 - 50 mg PO DIRECTED 12/17/16 12/17/16 History Allergies Allergy/AdvReac Type Severity Reaction Status Date / Time Sulfa (Sulfonamide Allergy Unknown Verified 12/17/16 10:15 Antibiotics) Childhood Physical Exam Vitals: Vital Signs Temp Pulse Resp BP Pulse Ox 12/19/16 08:00 16 12/19/16 07:00 96.9 F L 57 L 16 82/56 99 12/18/16 23:00 98.7 F 86 18 114/70 98 12/18/16 16:00 16 12/18/16 15:00 97.3 F L 100 16 104/68 97 Intake and Output 12/18/16 12/19/16 12/19/16 22:59 06:59 14:59 Intake Total 600 600 360 Output Total 400 Balance 200 600 360 Intake: Oral 600 600 360 Output: Urine 400 Other: Voiding Method Toilet Toilet Urinal Urinal # Voids 2 2 3 Physical exam 36-year-old male resting in bed does not appear in acute distress oriented to person place event does not appear overly anxious Lungs essentially clear adequate air movement Heart S1-S2 audible regular Abdomen flat nontender no reports of nausea vomiting Extremities no tremors noted no edema noted Results CBC & Chem 7: 12/16/16 22:22 12/16/16 22:22 Thrombosis Risk Factor Assmnt - Choose All That Apply Any of the Below Risk Factors Present?: No Other Risk Factors: No Thrombosis Risk Factor Assessment Level: Very Low Risk Assessment and Plan Plan: Impression Present on admission acute alcohol intoxication Chronic alcohol abuse Rule out antisocial traits Current every day smoker Urine drug screen positive for marijuana and benzodiazepine Plan Stop CIWA protocol/Ativan and monitor another 23 hours with the plan the patient will be DC'd in the morning if medically stable [place] worker helper's recommendations reviewed did provide the patient with information about local [facility] Psychiatrist's recommendations reviewed and appreciated continue to monitor The above impression and plan of care have been discussed and directed by signing physician. Stephy Mojica nurse practitioner acting as scribe for signing physician.
[2016-12-20 00:01] VITALS: RESP 18
[2016-12-20 08:05] VITALS: BP 107/69; TEMP 97.4
[2016-12-20] MEDS: NICOTINE 21MG/24HR PATCH TRANSDERM SCH (08:40)
--- NOTE | 2016-12-20 09:47 | P.PN ---
Progress Note - Text Patient awake and alert. Lying in bed stated he felt better today. Patient states that a doctor told him last night that they would provide a taxi for him, I told him the only information that I have is that we can provide a bus pass for him not a taxi. Later checking with nursing they stated he was told they could give a taxi to the long term but that he wants to go to a plasma donation center and that it was not considered appropriate. Patient states that he is going to the plasma center to donate in order to get some funds. Has plans to try to find a job. Patient did not have any benzodiazepine last night, his vital signs were normal , no evidence of alcohol withdrawal, no pending DTs. MENTAL STATUS: Patient alert and oriented 3, good eye contact, fair groomed in hospital attire. Speech normal volume, rate and production. Coherent, logical and goal directed thought process. No ELENA, no FOI. No TB/TW/ TI Denied auditory and visual hallucinations. Denied paranoid ideation, delusions or IOR. Mood neutral, affect constricted, congruent with mood. Denies suicidal ideation, denies homicidal ideation. Insight none; Judgment intact ETOH Use Disorder, severe ETOH Intoxicattion, resolved Patient is psychiatrically stable there is no indication for inpatient admission , psychotropic medications, or other outpatient treatment then the substance abuse treatment for alcohol. Patient has an appointment at [facility] for an admission on January 02. No benzodiazepines.
[2016-12-20 10:28] VITALS: PULSE 79
--- NOTE | 2016-12-20 10:38 | P.DS ---
Providers Date of admission: 12/17/16 00:55 Expected date of discharge: 12/20/16 Attending physician: Tee Barnes Consults: 12/17/16 00:55 Consult Physician Routine Consulting Provider: Raegan Caban Consult Reason/Comments: Suicidal ideations Do you want consulting provider notified?: Yes Primary care physician: Stated None Hospital Course: 36-year-old who presented on the day of admission to the emergency room to be evaluated alcoholism multidrug abuse presented for alcohol withdraw. Patient states he's been under a lot of life stressors. Patient states he's been drinking more than he usually drinks. Patient states he never felt this way before in the. Patient initially was admitted under Dr. Tena who initially except the admission and then requested since the patient was not established with Dr. Tena the admission to transferred to Dr. Barnes he was taking city call patient was admitted for alcohol detox. Psychiatrist did see the patient patient reportedly moved up here from another state he states he was looking for employment. He states he was living with some friends stated that the living situation became healthy forcing him to leave. He states he's been moving from situation to situation and [place] is [address] states he currently is working at the [employer]. Patient stated he was contemplating suicide ideation. But he doesn't believe that he would go through with it. Patient was not experiencing any delirium tremors. Patient stated he had no intentions of hurting other people. Patient has no prior psychiatric illness patient report patient had been followed by psychiatric service. Patient did not have any benzodiazepines for 24 hours vital signs were normal there was no evidence of alcohol withdrawal no evidence of pending DTs. Patient was given a list of local shelters by the case work aidewater project manager worker Patient is psychiatrically stable there is no indication for inpatient admission, psychotropic medications, or other outpatient treatment then the substance abuse treatment for alcohol. Patient has an appointment at [facility] for an admission on January 02. No benzodiazepines. Impression Present on admission acute alcohol intoxication Chronic alcohol abuse Rule out antisocial traits Current every day smoker Urine drug screen positive for marijuana and benzodiazepine The above impression and plan of care have been discussed and directed by signing physician. Stephy Mojica nurse practitioner acting as scribe for signing physician. Plan - Discharge Summary New Discharge Prescriptions: No Action Ondansetron Odt [Zofran Odt] 4 mg PO Q8HR PRN #12 tab PRN Reason: Nausea chlordiazePOXIDE HCl [Librium] 25 - 50 mg PO DIRECTED Discharge Medication List Ondansetron Odt [Zofran Odt] 4 mg PO Q8HR PRN #12 tab 12/13/16 [Rx] chlordiazePOXIDE HCl [Librium] 25 - 50 mg PO DIRECTED 12/17/16 [History] Follow up Appointment(s)/Referral(s): None,Stated [Primary Care Provider] - 1-2 days Tee Barnes MD [STAFF PHYSICIAN] - 1 Week Patient Instructions/Handouts: How to Stop Smoking (DC), Alcohol Withdrawal (DC ) Activity/Diet/Wound Care/Special Instructions: Regular diet. NO drinking, information given and reviewed. NO smoking, cessation information provided. [facility] admission 01-02-17 Discharge Disposition: HOME SELF-CARE
[2016-12-20] MEDS: THIAMINE 100 MG TAB PO SCH (12:05)
[2016-12-20] MEDS: MULTIVITAMINS, THERA 1 EACH TAB PO SCH (12:05)
== END 2016-12-20 13:16 | disposition home or self-care (01) ==
LOC: EC 21:58 → 4MS4W 12-17 00:55
PROVIDERS: ADMIT Family Medicine; ATTEND Family Medicine
DX: F10.239 Alcohol dependence with withdrawal, unspecified (principal); F32.9 Major depressive disorder, single episode, unspecified; R45.851 Suicidal ideations; F43.21 Adjustment disorder with depressed mood; F22 Delusional disorders; Z59.0 Homelessness; Z88.2 Allergy status to sulfonamides; F41.9 Anxiety disorder, unspecified; F17.200 Nicotine dependence, unspecified, uncomplicated; S36.09XA Other injury of spleen, initial encounter; Y93.23 Activity, snow (alpine) (downhill) skiing, snowboarding, sledding, tobogganing and snow tubing; Z16.24 Resistance to multiple antibiotics; Z79.899 Other long term (current) drug therapy
CPT/HCPCS: 96372 ×2; 99284 ×2; 82075; 36415; 80048; 85025; 80306; 83520 ×2; G0378 ×4; S4990 ×2; J2060 ×2; J3411

== ENCOUNTER 2016-12-21 19:32 | Emergency (ER) | payer SELFPAY ==
[2016-12-21 19:55] VITALS: BP 103/62; PULSE 98; RESP 16; TEMP 97.4
[2016-12-21] MEDS ORDERED: CEPHALEXIN 500MG STARTER PACK 4 CAP BTL PO STA (20:19)
[2016-12-21] MEDS ORDERED: IBUPROFEN 600 MG TAB PO STA (20:19)
--- NOTE | 2016-12-21 20:29 | ED ---
Extremity Problem HPI - General Chief complaint: Extremity Problem,Nontraumatic Stated complaint: Wrist Pain Time Seen by Provider: 12/21/16 19:59 Source: patient Mode of arrival: ambulatory Limitations: no limitations - History of Present Illness Initial comments: Patient is a 36-year-old male presenting to the emergency department with complaints of left hand swelling and pain around the site where he previously had an IV catheter inserted. Patient states he was in the hospital and had a left hand IV removed yesterday prior to discharge. Patient states today his hand hurts with the IV catheter was discontinued with some swelling of his left arm. Patient denies treatment prior to arrival. MD Complaint: extremity pain, extremity swelling Onset/Timin -: days(s) Location: left, upper extremity History of Same: No Radiation: proximal Severity scale (1-10): 6 Quality: sharp Consistency: constant Improves with: nothing Worsens with: palpation Associated Symptoms: denies other symptoms - Related Data Home Medications Medication Instructions Recorded Confirmed chlordiazePOXIDE HCl [Librium] 25 mg PO BID 12/17/16 12/21/16 Previous Rx's Medication Instructions Recorded Cephalexin [Keflex] 500 mg PO Q6HR #28 cap 12/21/16 Allergies Allergy/AdvReac Type Severity Reaction Status Date / Time Sulfa (Sulfonamide Allergy Unknown Verified 12/21/16 19:55 Antibiotics) Childhood Review of Systems ROS Statement: Those systems with pertinent positive or pertinent negative responses have been documented in the HPI. ROS Other: All systems not noted in ROS Statement are negative. Past Medical History Past Medical History: No Reported History History of Any Multi-Drug Resistant Organisms: MRSA Date of last positivie culture/infection: 2004 MDRO Source:: mrsa left wrist Additional Past Surgical History / Comment(s): ruptured spleen, several yrs ago , tubes in ears as a child Past Psychological History: No Psychological Hx Reported Smoking Status: Current every day smoker Past Alcohol Use History: Daily Past Drug Use History: Marijuana - Past Family History Father Additional Family Medical History / Comment(s): ETOH Mother Additional Family Medical History / Comment(s): moderate drinker, pancretitis General Exam Limitations: no limitations General appearance: alert, in no apparent distress Head exam: Present: atraumatic, normocephalic, normal inspection Eye exam: Present: normal appearance ENT exam: Present: normal exam, mucous membranes moist, normal external ear exam Neck exam: Present: normal inspection, full ROM. Absent: tenderness Respiratory exam: Present: normal lung sounds bilaterally. Absent: respiratory distress, wheezes, rales, rhonchi, stridor Cardiovascular Exam: Present: regular rate, normal rhythm, normal heart sounds. Absent: systolic murmur, diastolic murmur, rubs, gallop, clicks GI/Abdominal exam: Present: soft, normal bowel sounds. Absent: tenderness Left Shoulder Exam: Present: normal inspection, full ROM. Absent: tenderness, swelling Upper Arm exam: Present: normal inspection, full ROM. Absent: tenderness, swelling Elbow exam: Present: normal inspection, full ROM. Absent: tenderness, swelling Forearm Wrist exam: Present: other (Tenderness around previous IV catheter insertion site on dorsal aspect of left hand. Mild swelling and tenderness extending from previous IV catheter insertion site up to mid forearm. No evidence of cellulitis.) Hand Wrist exam: Present: tenderness. Absent: laceration, ecchymosis Neuro motor exam: Present: wrist extension intact, thumb opposition intact, thumb IP flexion intact, thumb adduction intact, fingers 2-5 abduction intact Neurosensory exam: Present: radial nerve intact, ulnar nerve intact, median nerve intact Vascular: Present: normal capillary refill, radial pulse, brachial pulse, ulnar pulse. Absent: vascular compromise Neurological exam: Present: alert, oriented X3, normal gait, other (No focal deficits noted) Psychiatric exam: Present: normal affect, normal mood Skin exam: Present: warm, dry, normal color Course Vital Signs 12/21/16 19:52 Temperature 97.4 F L Pulse Rate 98 Respiratory 16 Rate Blood Pressure 103/62 O2 Sat by Pulse 97 Oximetry Medical Decision Making - Medical Decision Making Phlebitis to left upper extremity suspect secondary to previous IV catheter insertion. Patient instructed to apply warm compresses, continue Motrin, and elevate extremity. Patient placed on Keflex. Patient struck her to follow-up with primary care physician or return to the emergency department with any new or worsening symptoms. Discharged instructions and return parameters reviewed. Disposition Clinical Impression: Phlebitis after infusion Disposition: HOME SELF-CARE Condition: Good Additional Instructions: Continue warm compresses, ibuprofen, and elevation of extremities. Finish antibiotics as prescribed. Follow-up with primary care physician as directed. Please return to the emergency department with any new or worsening symptoms. Prescriptions: Cephalexin [Keflex] 500 mg PO Q6HR #28 cap Referrals: None,Stated [Primary Care Provider] - 1-2 days Time of Disposition: 20:28
== END 2016-12-21 20:35 | disposition home or self-care (01) ==
LOC: EC 19:32
DX: T80.1XXA Vascular complications following infusion, transfusion and therapeutic injection, initial encounter (principal); I80.8 Phlebitis and thrombophlebitis of other sites; F17.200 Nicotine dependence, unspecified, uncomplicated; Z79.899 Other long term (current) drug therapy; Z88.2 Allergy status to sulfonamides; Y83.8 Other surgical procedures as the cause of abnormal reaction of the patient, or of later complication, without mention of misadventure at the time of the procedure
CPT/HCPCS: 99283